=== PATIENT | female | born 1925 | race Hispanic/Latino ===

== ENCOUNTER 2016-11-19 13:33 | Outpatient (CLI) | payer MEDICARE ==
--- NOTE | 2016-11-20 07:25 | RAD ---
RIGHT RIBS THREE VIEWS: History: Patient is status post fall. FINDINGS: Bones are severely demineralized. There is deformity to anterior second, third, fourth, and probably fifth ribs. I believe that this is older in appearance. I think it is less likely to be acute. I do not see any signs of pleural effusion or any definite evidence of a pneumothorax. IMPRESSION: 1. Severe bony demineralization. This obscures detailed evaluation for subtle fractures. There do ap pear to be some older appearing rib fractures that are not definitely acute. I do not see any defini te pneumothorax. 2. 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 POS: JASON
== END 2016-11-19 13:34 | disposition home or self-care (01) ==
LOC: BURRAD 13:33
PROVIDERS: ATTEND Family Medicine
DX: R07.81 Pleurodynia (principal); M81.0 Age-related osteoporosis without current pathological fracture